=== PATIENT | male | born 1960 | race Caucasian/White ===

== ENCOUNTER 2019-08-31 14:46 | Emergency (ER) | payer MEDICAID ==
[2019-08-31 16:13] VITALS: BP 171/90; PULSE 72
[2019-08-31] MEDS ORDERED: Ketorolac 30 MG/ML SDV IVPUSH ONE (16:29)
[2019-08-31] MEDS ORDERED: Sodium Chloride 0.9% 1,000 ML IV SCH (16:30)
--- NOTE | 2019-08-31 16:33 | EDM.PDOC ---
ED HPI GENERAL MEDICAL PROBLEM - General Chief Complaint: Genitourinary Problem Stated Complaint: CONCERNED ABOUT KIDNEY STONE Time Seen by Provider: 08/31/19 16:20 Source of Information: Reports: Patient History Limitations: Reports: No Limitations - History of Present Illness INITIAL COMMENTS - FREE TEXT/NARRATIVE: 58-year-old male with a history of kidney stones presents to the ED with left flank pain that started 5 AM. Denies chills or fever. Denies any dysuria. He also has Crohn's disease. He is not immunocompromised otherwise. Left Flank Pain Score (Numeric/FACES): 10 - Related Data Allergies Allergy/AdvReac Type Severity Reaction Status Date / Time banana Allergy Itching Verified 08/31/19 16:12 pseudoephedrine HCl Allergy Other Verified 08/31/19 16:12 [From Actifed] triprolidine HCl Allergy Other Verified 08/31/19 16:12 [From Actifed] coconut Allergy Difficulty Uncoded 04/29/15 04:48 Breathing radish Allergy Difficulty Uncoded 04/29/15 04:48 Breathing Home Meds: Home Meds NK [No Known Home Meds] 04/29/15 [History] Past Medical History Gastrointestinal History: Reports: None Other Gastrointestinal History: Chrons Genitourinary History: Reports: Renal Calculus Musculoskeletal History: Reports: Fracture - Infectious Disease History Infectious Disease History: Reports: Chicken Pox - Past Surgical History Head Surgeries/Procedures: Reports: None GI Surgical History: Reports: Cholecystectomy Male Surgical History: Reports: None Musculoskeletal Surgical History: Reports: None Social & Family History - Family History Family Medical History: Unobtainable - Tobacco Use Smoking Status *Q: Never Smoker - Caffeine Use Caffeine Use: Reports: None - Recreational Drug Use Recreational Drug Use: Yes Drug Use in Last 12 Months: Yes Recreational Drug Type: Reports: Marijuana/Hashish Recreational Drug Use Frequency: Daily ED ROS GENERAL - Review of Systems Review Of Systems: See Below Constitutional: Denies: Fever, Chills, Malaise Respiratory: Reports: No Symptoms. Denies: Shortness of Breath, Wheezing, Cough GI/Abdominal: Reports: Abdominal Pain. Denies: Nausea, Vomiting : Denies: Dysuria (Give) Course - Vital Signs Text/Narrative:: This patient has a left-sided kidney stone. It is fairly large and measures 8 mm x 6 mm x 13 mm. He has severe hydronephrosis and hydroureter. His urine is normal and creatinine is 1.2. He is afebrile. I discussed it with the urologist at [facility]. The patient was given hydrocodone 5/325 mg 1 or 2 tablets every 6 hours as needed for pain. He was given 4 tablets from the [facility] machine and a prescription for 15 more he can get filled at the pharmacy tomorrow. He was given a prescription of Flomax 0.4 mg daily. The patient will return to the ER if he has any fever, chills or persistent pain. He may need a stent at that time if he has persistent difficulties. The patient is discharged home and he agrees with this plan. Last Recorded V/S: Last Vital Signs Temp 36.4 C 08/31/19 16:17 Pulse 72 08/31/19 16:17 Resp 12 08/31/19 16:17 BP 171/90 H 08/31/19 16:17 Pulse Ox 98 08/31/19 16:17 - Orders/Labs/Meds Orders: Active Orders 24 hr Category Date Time Status Sodium Chloride 0.9% [Normal Saline] 1,000 ml Med 08/31/19 16:30 Active IV ASDIRECTED Medication Orders Sodium Chloride (Normal Saline) 1,000 mls @ 1,000 mls/hr IV ASDIRECTED ELIO Last Admin: 08/31/19 16:42 Dose: 1,000 mls/hr Documented by: DANIELA Labs: Laboratory Tests 08/31/19 08/31/19 08/31/19 Range/Units 16:47 16:59 17:19 WBC 16.9 H (4.5-11.0) K/uL RBC 5.34 (4.30-5.90) M/uL Hgb 14.9 (12.0-15.0) g/dL Hct 44.5 (40.0-54.0) % MCV 83 (80-98) fL MCH 28 (27-31) pg MCHC 34 (32-36) % Plt Count 392 (150-400) K/uL Neut % (Auto) 83 H (36-66) % Lymph % (Auto) 9 L (24-44) % Phelps % (Auto) 8 H (2-6) % Eos % (Auto) 0 L (2-4) % Baso % (Auto) 0 (0-1) % Sodium 143 (140-148) mmol/L Potassium 3.6 (3.6-5.2) mmol/L Chloride 106 (100-108) mmol/L Carbon Dioxide 25 (21-32) mmol/L Anion Gap 12.2 (5.0-14.0) mmol/L BUN 13 (7-18) mg/dL Creatinine 1.2 (0.8-1.3) mg/dL Est Cr Clr Drug Dosing 69.85 mL/min Estimated GFR (MDRD) > 60 (>60) Glucose 112 H (74-106) mg/dL Calcium 8.6 (8.5-10.1) mg/dL Urine Color Yellow (YELLOW) Urine Appearance Slightly cloudy A (CLEAR) Urine pH 6.0 (5.0-8.0) Ur Specific Barton >= 1.030 (1.008-1.030) Urine Protein 30 H (NEGATIVE) mg/dL Urine Glucose (UA) Negative (NEGATIVE) mg/dL Urine Ketones 40 H (NEGATIVE) mg/dL Urine Occult Blood Large H (NEGATIVE) Urine Nitrite Negative (NEGATIVE) Urine Bilirubin Small H (NEGATIVE) Urine Urobilinogen 0.2 (0.2-1.0) EU/dL Ur Leukocyte Esterase Negative (NEGATIVE) Meds: Medications Generic Name Dose Route Start Last Admin Trade Name Freq PRN Reason Stop Dose Admin Sodium Chloride 1,000 mls @ 1,000 mls/hr 08/31/19 16:30 08/31/19 16:42 Normal Saline IV 1,000 mls/hr ASDIRECTED ELIO Administration Discontinued Medications Generic Name Dose Route Start Last Admin Trade Name Freq PRN Reason Stop Dose Admin Ketorolac Tromethamine 15 mg 08/31/19 16:29 08/31/19 16:40 Toradol IVPUSH 08/31/19 16:30 15 mg ONETIME ONE Administration Departure - Departure Time of Disposition: 19:06 Disposition: Home, Self-Care 01 Condition: Good Clinical Impression: Kidney stone on left side - Discharge Information *PRESCRIPTION DRUG MONITORING PROGRAM REVIEWED*: No *COPY OF PRESCRIPTION DRUG MONITORING REPORT IN PATIENT TORIE: No Instructions: Kidney Stones, [id number] Referrals: PCP,None [Primary Care Provider] - Forms: ED Department Discharge Additional Instructions: Drink plenty of fluids. Take hydrocodone 1 or 2 tablets every 6 hours for pain. Take Flomax 0.4 mg daily to help move the kidney stone. Return to the ER if you develop persistent pain, fever, chills or any dysuria. Sepsis Event Note (ED) - Evaluation Sepsis Screening Result: No Definite Risk - Focused Exam Vital Signs: Vital Signs Temp Pulse Resp BP Pulse Ox 08/31/19 16:17 36.4 C 72 12 171/90 H 98 08/31/19 16:11 36.4 C 72 12 171/90 H 98 - My Orders Last 24 Hours: My Active Orders 08/31/19 16:30 Sodium Chloride 0.9% [Normal Saline] 1,000 ml IV ASDIRECTED - Assessment/Plan Last 24 Hours: My Active Orders 08/31/19 16:30 Sodium Chloride 0.9% [Normal Saline] 1,000 ml IV ASDIRECTED
--- NOTE | 2019-08-31 18:30 | CRLCT ---
HISTORY: Left flank pain, history of kidney stones. TECHNIQUE: Noncontrast CT of the abdomen and pelvis. COMPARISON: 09/01/2015. FINDINGS: On the left, there is severe hydronephrosis and also hydroureter secondary to an approximately 8 x 6 x 13 mm calculus within the distal ureter, a few cm proximal to the ureterovesical junction. The long dimension of the calculus is oriented craniocaudad. There is perinephric stranding and periureteral stranding on the left. Additional 2 mm intrarenal calculus within the inferior pole collecting system left kidney. On the right, there is a 4 mm calculus within the inferior pole collecting system and a few additional punctate intrarenal calculi. There is no right-sided hydronephrosis. No right ureteral calculus. The urinary bladder does not appear overly distended. - No focal liver mass. Prior cholecystectomy. Spleen size within normal limits. Enlargement of a right adrenal gland nodule now measuring 1.8 cm in size. It demonstrates internal attenuation of approximately 9 Hounsfield units. It most likely reflects a adenoma. Left adrenal gland is unremarkable. Pancreas is not optimally evaluated out contrast though appears grossly unremarkable. - No small bowel obstruction. No appendicitis. No diverticulitis. There is submucosal fat deposition involving portions of the colon. There is also submucosal fat deposition involving the terminal ileum/distal ileum. - No abdominal aortic aneurysm. - No fluid collection or free intraperitoneal air. - No infiltrate within the lung bases or pleural effusion. - Degenerative changes of the spine. No acute fractures. Chronic sacroiliitis changes involving the sacroiliac joints with increased sclerosis. No ankylosis. IMPRESSION: 1. On the left, there is severe hydronephrosis and hydroureter secondary to an 8 x 6 x 13 mm calculus within the distal ureter. 2. Additional intrarenal calculi bilaterally. 3. Enlargement of a right adrenal gland nodule likely reflecting an adenoma. 4. Changes of prior cholecystectomy. 5. Chronic sacroiliitis changes. Dictated by Corwin Benavides MD @ 08/31/2019 6:28:49 PM Please note that all CT scans at this facility use dose modulation, iterative reconstruction, and/or weight-based dosing when appropriate to reduce radiation dose to as low as reasonably achievable. Dictated by: Corwin Benavides MD @ 08/31/2019 18:28:54 (Electronically Signed)
== END 2019-08-31 19:21 | disposition home or self-care (01) ==
LOC: JP.ED 14:46
DX: N13.2 Hydronephrosis with renal and ureteral calculous obstruction (principal); Z91.018 Allergy to other foods; Z88.8 Allergy status to other drugs, medicaments and biological substances
CPT/HCPCS: 36415; 74176; 80048; 81003; 85025; 96374; 99284; J1885; J7030

== ENCOUNTER 2022-04-13 12:43 | Emergency (ER) | payer MEDICAID ==
[2022-04-13 13:31] VITALS: BP 163/85; PULSE 82
== END 2022-04-13 15:06 | disposition home or self-care (01) ==
LOC: JP.ED 12:43
DX: I10 Essential (primary) hypertension (principal); Z91.018 Allergy to other foods; Z88.8 Allergy status to other drugs, medicaments and biological substances; Z79.899 Other long term (current) drug therapy
CPT/HCPCS: 99283